=== PATIENT | female | born 1990 | race Caucasian/White ===

== ENCOUNTER 2021-08-25 17:20 | Emergency (ER) | payer OTHER ==
[~2021-08-25 17:20] MED LIST: HYDROCORTISONE30 G3 TOP
[2021-08-25 18:24] LABS: BASOPHIL 0.1 % (0-2); EOSINOPHIL 0.7 % (0-5); HCT 41.7 % (37.0-47.0); HGB 13.5 g/dl (12.5-16.0); LYMPHOCYTE 30.3 % (15-48); MCH 29.2 pg (25.0-31.0); MCHC 32.4 g/dL (32.0-36.0); MCV 90.3 fL (78.0-100.0); MONOCYTE 10.3 % (0-12); MPV 9.1 fL (6.0-9.5); NEUTROPHIL 58.2 % (41-80); NRBC 0; PLT 302 K/uL (150-400); RBC 4.62 M/uL (4.20-5.40); RDW 12.9 % (11.5-14.0); WBC 9.1 K/uL (4.0-10.5)
[2021-08-25 18:27] LABS: BILIRUBIN NEGATIVE (NEGATIVE); BLOOD 2+ Ery/uL (NEGATIVE); CLARITY CLEAR (CLEAR); COLOR YELLOW (YELLOW); GLUCOSE (U) NORMAL (NORMAL); LEUKOCYTES NEGATIVE Leu/uL (NEGATIVE); NITRITE NEGATIVE (NEGATIVE); PROTEIN NEGATIVE (NEGATIVE); SPECIFIC GRAVITY 1.025 (1.001-1.030); UROBILINOGEN 0.2 mg/dL (0.2-1.0)
[2021-08-25 18:39] LABS: URINARY RBC RARE; URINARY WBC RARE
[2021-08-25 18:45] LABS: CREATININE 0.75 mg/dL (0.51-0.95); POTASSIUM 3.3 mmol/L (3.5-5.1)
[2021-08-25] MEDS ORDERED: VENTOLIN HFA IN18 GM INH (20:47)
== END 2021-08-25 21:17 | disposition home or self-care (01) ==
LOC: FER 17:20
PROVIDERS: Nurse Practitioner Family
DX: U07.1 COVID-19 (principal); Z88.2 Allergy status to sulfonamides
CPT/HCPCS: 36415; 71045; 80048; 81001; 85025

== ENCOUNTER 2022-02-26 12:16 | Emergency (ER) | payer OTHER ==
[~2022-02-26 12:16] MED LIST changes: +VENTOLIN HFA IN18 GM INH
[2022-02-26 13:43] LABS: BASOPHIL 0.3 % (0-2); EOSINOPHIL 1.1 % (0-5); HCT 41.8 % (37.0-47.0); HGB 13.6 g/dl (12.5-16.0); LYMPHOCYTE 21.9 % (15-48); MCH 28.6 pg (25.0-31.0); MCHC 32.5 g/dL (32.0-36.0); MONOCYTE 7.3 % (0-12); MPV 9.6 fL (6.0-9.5); NEUTROPHIL 69.2 % (41-80); NRBC 0; PLT 302 K/uL (150-400); RBC 4.75 M/uL (4.20-5.40); RDW 13.7 % (11.5-14.0); WBC 9.8 K/uL (4.0-10.5)
[2022-02-26 13:56] LABS: BILIRUBIN - TOTAL 0.3 mg/dL (0.2-1.0); BUN/CREAT RATIO (CALC) 16.2 RATIO; CREATININE 0.68 mg/dL (0.51-0.95); GLOBULIN (CALCULATION) 3.6 g/dL; POTASSIUM 3.9 mmol/L (3.5-5.1); TOTAL PROTEIN 7.6 g/dL (6.4-8.2)
[2022-02-26 15:34] LABS: BILIRUBIN NEGATIVE (NEGATIVE); BLOOD 3+ Ery/uL (NEGATIVE); CLARITY CLEAR (CLEAR); COLOR YELLOW (YELLOW); GLUCOSE (U) NORMAL (NORMAL); LEUKOCYTES NEGATIVE Leu/uL (NEGATIVE); NITRITE NEGATIVE (NEGATIVE); PROTEIN NEGATIVE (NEGATIVE); SPECIFIC GRAVITY >=1.030 (1.001-1.030); UROBILINOGEN 0.2 mg/dL (0.2-1.0)
[2022-02-26 15:44] LABS: BACTERIA TRACE; URINARY RBC RARE; URINARY WBC RARE
[2022-02-26] MEDS ORDERED: ONDANSETRON ODT4 MG PO (16:16)
[2022-02-26] MEDS ORDERED: IBUPROFEN600 MG PO (16:16)
== END 2022-02-26 16:49 | disposition home or self-care (01) ==
LOC: FER 12:16
PROVIDERS: Physician Assistant
DX: R10.2 Pelvic and perineal pain (principal); R11.0 Nausea; F17.290 Nicotine dependence, other tobacco product, uncomplicated; Z88.2 Allergy status to sulfonamides
CPT/HCPCS: 36415; 76856; 80053; 81001; 85025; J1885; J2405; J7030